=== PATIENT | male | born 1995 | race Two or more races ===

== ENCOUNTER 2019-01-02 04:55 | Emergency (ER) | payer SELFPAY ==
[~2019-01-02] VITALS: Ht 170.2 cm; Wt 68.5 kg
[2019-01-02 05:07] VITALS: BP 126/81
--- NOTE | 2019-01-02 05:15 | NUR ---
Pt placed in bed
[2019-01-02] MEDS ORDERED: HYDROCODONE/APAP 5/325MG 1 EACH TABLET PO ONE (05:30)
[2019-01-02] MEDS ORDERED: HYDROCODONE/APAP 5/325MG 1 EACH TABLET ONE (05:34)
== END 2019-01-02 05:57 | disposition home or self-care (01) ==
LOC: ER 05:00
DX: S62.392A Other fracture of third metacarpal bone, right hand, initial encounter for closed fracture (principal); S62.394A Other fracture of fourth metacarpal bone, right hand, initial encounter for closed fracture; W05.2XXA Fall from non-moving motorized mobility scooter, initial encounter; Y93.89 Activity, other specified; Y92.89 Other specified places as the place of occurrence of the external cause; Y99.8 Other external cause status
CPT/HCPCS: 73130-TC